=== PATIENT | female | born 1985 | race Caucasian/White ===

== ENCOUNTER 2023-07-07 10:15 | Outpatient (OUT) | payer OTHER, SELFPAY ==
--- NOTE | 2023-07-07 10:26 | US_ITS ---
[address] [address] Patient Name: VENUS ENG MRN: [facility]:[id number] date: 1985 Sex: F Assigned Patient Location: [facility] Current Patient Location: [facility] Accession/Order Number: [id number] Exam Date: 07/07/2023 10:30 Report Date: 07/07/2023 11:27 At the request of: PATIENCE DEAN Procedure: US OB growth EXAM: US OB BPP w non-stress, US OB growth; [id number], [id number] HISTORY: Advanced maternal age. COMPARISON: None. FINDINGS: A single intrauterine is identified. Presentation is breech. BPD 8.98 cm = 36 weeks 3 days, 33.2 percentile HC 33.10 cm = 39 weeks 2 days, 66.2 percentile AC 33.52 cm = 37 weeks 3 days, 58.6 percentile FL 6.78 cm = 34 weeks 6 days, less than 3 percentile Composite gestational age is 37 weeks 0 days (+/- 2 weeks 4 days), concordant with provided gestational age of 37 weeks 5 days. Estimated weight is 3055 +/- 458.19 g. CI = 74.18 (70.0-86.0) HC/AC = 1.02 (0.92 - 1.05) EFW Percentile: 38.0% Normal movements were seen during real-time exam. heart rate measures 166 bpm. Amniotic fluid index (ALMAZ) measures 12.2 cm. Placenta is posterior. breathing movements, gross body movements, tone, and qualitative amniotic fluid volume are all within normal limits resulting in a biophysical profile score of 8. US/US OB growth IMPRESSION: 1. Single living intrauterine . 2. Estimated gestational age is 37 w 0 d based on this exam. 3. Estimated weight of 3055 g, 38.0 percentile. Femur length in the less than 3 percentile. 4. Normal amniotic fluid index. 5. Normal biophysical profile score of 8. Electronically authenticated by: THOR SAWYER Date: 07/07/2023 11:27
--- NOTE | 2023-07-07 10:28 | US_ITS ---
The [address] [address] Patient Name: VENUS ENG MRN: [facility]:[id number] date: 1985 Sex: F Assigned Patient Location: [facility] Current Patient Location: [facility] Accession/Order Number: [id number] Exam Date: 07/07/2023 10:30 Report Date: 07/07/2023 11:27 At the request of: PATIENCE DEAN Procedure: US OB BPP w non-stress EXAM: US OB BPP w non-stress, US OB growth; [id number], [id number] HISTORY: Advanced maternal age. COMPARISON: None. FINDINGS: A single intrauterine is identified. Presentation is breech. BPD 8.98 cm = 36 weeks 3 days, 33.2 percentile HC 33.10 cm = 39 weeks 2 days, 66.2 percentile AC 33.52 cm = 37 weeks 3 days, 58.6 percentile FL 6.78 cm = 34 weeks 6 days, less than 3 percentile Composite gestational age is 37 weeks 0 days (+/- 2 weeks 4 days), concordant with provided gestational age of 37 weeks 5 days. Estimated weight is 3055 +/- 458.19 g. CI = 74.18 (70.0-86.0) HC/AC = 1.02 (0.92 - 1.05) EFW Percentile: 38.0% Normal movements were seen during real-time exam. heart rate measures 166 bpm. Amniotic fluid index (ALMAZ) measures 12.2 cm. Placenta is posterior. breathing movements, gross body movements, tone, and qualitative amniotic fluid volume are all within normal limits resulting in a biophysical profile score of 8. US/US OB BPP w non-stress IMPRESSION: 1. Single living intrauterine . 2. Estimated gestational age is 37 w 0 d based on this exam. 3. Estimated weight of 3055 g, 38.0 percentile. Femur length in the less than 3 percentile. 4. Normal amniotic fluid index. 5. Normal biophysical profile score of 8. Electronically authenticated by: THOR SAWYER Date: 07/07/2023 11:27
== END 2023-07-07 12:50 | disposition home or self-care (01) ==
LOC: FBCO 10:15 → FBC 10:16
PROVIDERS: Visit Provider Obstetrics & Gynecology
DX: O09.523 Supervision of elderly multigravida, third trimester (principal); Z3A.37 37 weeks gestation of pregnancy; O32.1XX0 Maternal care for breech presentation, not applicable or unspecified
CPT/HCPCS: 76816; 76818; 87081; 87150

== ENCOUNTER 2023-07-07 19:47 | Outpatient (REF) | payer OTHER, SELFPAY | END 2023-07-07 19:48 | disposition home or self-care (01) | LOC: LAB 19:47 | PROVIDERS: Visit Provider Obstetrics & Gynecology | DX: Z34.93 Encounter for supervision of normal pregnancy, unspecified, third trimester (principal) | CPT/HCPCS: 87081; 87150 ==

== ENCOUNTER 2023-07-10 07:56 | Observation (INO) | payer OTHER, SELFPAY ==
[2023-07-10 08:23] VITALS: BP 103/70; PULSE 93
--- NOTE | 2023-07-10 08:40 | PC.NURSE ---
Dr. Hunt at bedside to explain procedure and discuss risks. Pt. asks many questions and verbalizes anxieties. Dr. Hunt explains everything and comforts her. US used to confirm fetus remains in breech position. Gentle pressure applied towards top of uterus where head is and pt. says Okay, NO, NO! Dr. Hunt discussed plan of care with pt. and outpatient testing needed, as well as tentative C/S next Thurs. if breech position remains. Pt. verbalizes understanding and is staying to complete NST at this time.
--- NOTE | 2023-07-10 10:36 | US_ITS ---
[address] [address] Patient Name: VENUS ENG MRN: [facility]:[id number] date: 1985 Sex: F Assigned Patient Location: [facility] Current Patient Location: [facility] Accession/Order Number: [id number] Exam Date: 07/10/2023 10:50 Report Date: 07/10/2023 11:59 At the request of: PATIENCE DEAN Procedure: US OB BPP w non-stress EXAMINATION: US OB BPP w non-stress HISTORY: NON REACTIVE NST COMPARISON: Ultrasound OB biophysical 07/07/2023 TECHNIQUE: Ultrasound biophysical profile was performed in the radiology department. BREATHING MOVEMENTS: 2.0 GROSS BODY MOVEMENTS: 0.0 TONE: 2.0 QUALITATIVE AMNIOTIC FLUID VOLUME: 2.0 PRESENTATION: BREECH HEART RATE: 149.2 bpm bpm. AMNIOTIC FLUID VOLUME: 17.9 cm GESTATIONAL AGE: 38 weeks 1 days CONCLUSION: Total biophysical profile score 6.0. Electronically authenticated by: JENNIFER LOBATO Date: 07/10/2023 11:59
[2023-07-10 11:47] VITALS: BP 116/65; PULSE 85
[2023-07-10] MEDS: 0.9 % SODIUM CHLORIDE 1,000 ML 1000 ML IV (12:31)
--- NOTE | 2023-07-18 14:37 | PM.OBPN ---
OB - PN: Subj Subjective Interval history: desires external cephalic version for breech presentation Patient comments: no complaints Exam Constitutional Vital Signs, click to edit/add: Last Vital Signs Pulse 85 07/10/23 11:47 BP 116/65 07/10/23 11:47 Documenting provider has reviewed patient's vital signs: yes Respiratory Common normals: clear to auscultation bilaterally Cardio Common normals: regular rate and regular rhythm GI Common normals: Normal to inspection, nondistended, normoactive bowel sounds present Extremity Common normals: no clubbing, cyanosis or edema and no calf tenderness OB - PN: A/P Assessment and Plan (1) Breech position of fetus: Plan breech presentation-pt states no longer desires ecv, pt sent home and scheduled to return for c/s Time Spent with Patient Time: Total time spent is greater than 50% in coordination of care (as documented) at patient's floor/unit and/or counseling patient: Total time spent with greater than 50% in coordination of care (as documented) at patient's floor/unit and/or counseling patient: 25 - 35 minutes
== END 2023-07-10 13:17 | disposition home or self-care (01) ==
LOC: FBC 07:58
PROVIDERS: Admitting Provider Obstetrics & Gynecology; Visit Provider Obstetrics & Gynecology
DX: O26.843 Uterine size-date discrepancy, third trimester (principal); Z3A.38 38 weeks gestation of pregnancy; Z79.891 Long term (current) use of opiate analgesic
CPT/HCPCS: 59025; 76818; G0378; G0379

== ENCOUNTER 2023-07-14 13:35 | Inpatient (IN) | payer OTHER, SELFPAY ==
[2023-07-14] VITALS (29 sets, daily range): BP systolic 89–127; BP diastolic 44–77; PULSE 69–98; RESP 8–34; TEMP 36.1–36.8; O2SAT 96–100
--- NOTE | 2023-07-14 12:37 | US_ITS ---
[address] [address] Patient Name: VENUS ENG MRN: [id number] date: 1985 Sex: F Assigned Patient Location: [facility] Current Patient Location: [facility] Accession/Order Number: [id number] Exam Date: 07/14/2023 12:38 Report Date: 07/15/2023 07:05 At the request of: PATIENCE DEAN Procedure: US OB BPP w non-stress EXAMINATION: US OB BPP w non-stress HISTORY: SUBUTEX MAINTENANCE COMPARISON: No relevant comparison available. TECHNIQUE: Ultrasound biophysical profile was performed in the radiology department. FINDINGS: BREATHING MOVEMENTS: 2.0 GROSS BODY MOVEMENTS: 0.0 TONE: 2.0 QUALITATIVE AMNIOTIC FLUID VOLUME: 2.0 PRESENTATION: TRANSVERSE HEART RATE: 157.0 bpm H.B./min AMNIOTIC FLUID VOLUME: 10.4 cm cm GESTATIONAL AGE: 38 weeks 5 days CONCLUSION: Total biophysical profile score: 6.0 Electronically authenticated by: МАРИНА HSU Date: 07/15/2023 07:05
[2023-07-14 14:28] LABS: Basophils Percent Auto 0.5 % (0.2-2.0); Eosinophils Absolute Auto 0.2 10^3/uL (0.0-0.7); Eosinophils Percent Auto 2.4 % (0.9-7.0); Hematocrit 27.4 % (36.0-48.0); Hemoglobin 8.7 g/dL (12.0-16.0); Immature Granulocytes Abs Auto 0.04 10^3/uL (0.00-0.03); Immature Granulocytes Pct Auto 0.5 % (0.0-0.5); Lymphocytes Absolute Auto 1.8 10^3/uL (1.2-3.8); Lymphocytes Percent Auto 23.1 % (20.5-60.0); Mean Corpuscular HGB Conc 31.8 g/dL (29.9-35.2); Mean Corpuscular Hemoglobin 24.9 pg (26.7-34.0); Mean Corpuscular Volume 78.3 fL (81.0-99.0); Mean Platelet Volume 9.1 fL (9.5-13.5); Monocytes Absolute Auto 0.6 10^3/uL (0.3-0.8); Monocytes Percent Auto 8.4 % (1.7-12.0); Neutrophils Absolute Auto 4.9 10^3/uL (1.4-6.5); Neutrophils Percent Auto 65.1 % (43.0-75.0); Platelet Count 399 10^3/uL (150-450); Red Cell Distribution Width 14.2 % (11.0-15.0); White Blood Count 7.6 10^3/uL (4.0-11.0)
[2023-07-14 14:41] LABS: Amphetamine Screen Urine NEGATIVE (NEGATIVE); Barbiturates Screen Urine NEGATIVE (NEGATIVE); Benzodiazepines Screen Urine NEGATIVE (NEGATIVE); Buprenorphine Screen Urine POSITIVE (NEGATIVE); Cannabinoid Screen Urine POSITIVE (NEGATIVE); Cocaine Screen Urine NEGATIVE (NEGATIVE); Methadone Screen Urine NEGATIVE (NEGATIVE); Methamphetamines Screen Urine NEGATIVE (NEGATIVE); Opiate Screen Urine NEGATIVE (NEGATIVE); Oxycodone Screen Urine NEGATIVE (NEGATIVE); Phencyclidine Screen Urine NEGATIVE (NEGATIVE); Tricyclic Antidepressant Urine NEGATIVE (NEGATIVE)
--- NOTE | 2023-07-14 14:45 | PM.OBHP ---
OB - H&P: HPI History of Present Illness Chief complaint: Z34.98, O99.320, F11.20 - US BPP/NST : 6 Para: 4 Date of last menstrual period: 09/20/22 Gestational age based on last menstrual period: 38 5/7wks Comments: breech presentation, ho subutex use, fht reassuring but non reactive, bpp 04/17, discussed with patient, will perform section History of Present Dating criteria: LMP confirmed by 1st trimester US care: good care Ultrasounds: normal 1st trimester US Labs Blood type: O (+) positive Rubella: immune RPR/VDLR: nonreactive GBS status: unknown HBsAG: negative Review of Systems ROS Status of ROS 10 or more systems reviewed and unremarkable except as noted in history and below Meds Home Medications and Allergies Allergies Allergy/AdvReac Type Severity Reaction Status Date / Time No Known Drug Allergies Allergy Verified 07/10/23 08:21 Exam Constitutional Vital Signs, click to edit/add: Last Vital Signs Pulse 98 H 07/14/23 14:26 BP 127/68 07/14/23 14:26 Documenting provider has reviewed patient's vital signs: yes Common normals: no apparent distress Respiratory Common normals: clear to auscultation bilaterally Cardio Common normals: regular rate and regular rhythm GI Common normals: Normal to inspection, nondistended, normoactive bowel sounds present Extremity Common normals: no clubbing, cyanosis or edema and no calf tenderness Results Labs Labs: Short CBC 07/14/23 Range/Units 14:15 WBC 7.6 (4.0-11.0) 10^3/uL Hgb 8.7 L (12.0-16.0) g/dL Hct 27.4 L (36.0-48.0) % Plt Count 399 (150-450) 10^3/uL OB - A/P Assessment and Plan (1) Substance abuse affecting , antepartum: Plan iup at 38 5/7wks, substance abuse, non reactive nst, breech presentation-consent obtained, mmc reviewed, procedure reviewed, all questions answered
[2023-07-14] MEDS: 0.9 % SODIUM CHLORIDE 1,000 ML 125 ML IV (14:52)
[2023-07-14] MEDS: CEFAZOLIN SODIUM/DEXTROSE,ISO 2 GM/50 ML PIGGYBACK IV ×2 (14:52→22:05)
[2023-07-14] MEDS: LACTATED RINGER'S SOLUTION 1,000 ML 125 ML IV (15:35)
--- NOTE | 2023-07-14 15:50 | P.ON_ITS ---
Brief Operative Note Date of procedure: 07/14/23 Pre-op diagnosis: iup at 38 5/7wks, breech presentation, ho substance abuse Post-op diagnosis: same as pre-op Procedure: NAME OF PROCEDURE: [ section ] PROCEDURE: Patient was taken back to the Operating Room where she was given a spinal anesthesia with Duramorph without difficulty. She was prepped and draped in the normal sterile fashion. A Pfannenstiel skin incision was then made 2 cm above the symphysis pubis and carried down to underlying rectus fascia using a Bovie. The fascia was incised in the midline and extended laterally using Vee scissors. Two Sin clamps were placed on the superior aspect of the fascia and dissected off the underlying rectus muscles. The same was performed on the inferior aspect as well. The muscles were then in the midline. P eritoneum was identified and entered bluntly. The peritoneum was then extended superiorly and inferiorly with good visualization of the bladder. The bladder blade was inserted. A low transverse incision was made on the patient's uterus and extended laterally digitally. The infant was then delivered atraumatically after the bladder blade was removed in the cephalic position. The cord was clamped and cut. Cord blood was obtained. The infant was handed off to awaiting team. The patient's placenta was spontaneously delivered. The uterus was then exteriorized. The uterus was cleared of all clots and debris. The bladder blade was reinserted. The patient's uterine incision was closed using #0 Vicryl in a running lock fashion. Excellent hemostasis was assured. The uterus was then returned to the patient's abdomen. The patient's abdomen was copiously irrigated using warm saline. Peritoneal gutters were cleared of all clots and debris. Again excellent hemostasis was assured. The patient's peritoneum was closed using 3-0 Vicryl in a running fashion. The patient's fascia was closed using #0 Vicryl in a running fashion. The patient's skin was closed using 4-0 Vicryl subcuticularly. The patient tolerated the procedure well. Sponge, lap, and needle counts were correct x2. The patient was taken to the Recovery Room in stable condition. Anesthesia: spinal Surgeon: Alberto Hunt Risk Modeler: Gale Lopez Estimated blood loss (mL): 575 Pathology: other (placenta) Condition: stable Disposition: floor
--- NOTE | 2023-07-14 15:51 | P.OBPRC_ITS ---
Procedure Pre-op/Post-op diagnoses: Pre-Op/Post-Op Diagnoses Operation Date: 07/14/23 14:45 <No data on this case meets the specified criteria> Procedure: Procedures Operation Date: 07/14/23 14:45 Actual Procedure Side Surgeon p WITH OF VIABLE BABY BOY Not Applicable Alberto Hunt DO Applications Engineering Manager: Gale Lopez Estimated blood loss (mL): 575 Disposition: floor Anesthesia type: Spinal
[2023-07-14] MEDS: OXYTOCIN/0.9 % SODIUM CHLORIDE 20 UNITS/1,000 ML PLAST..BAG 200 UNIT IV (16:15)
[2023-07-14] MEDS: KETOROLAC TROMETHAMINE 30 MG/ML VIAL IVP ×2 (16:40→22:35)
[2023-07-14] MEDS: BUPRENORPHINE HCL 2 MG TAB SUBL 8 MG PO (18:18)
--- NOTE | 2023-07-14 18:28 | PC.NURSE ---
pt c/o abdominal cramping/ incision pain 04/19. Much reassurance given. subutext given as ordered PO. position change. assisted with.
[2023-07-15] VITALS (11 sets, daily range): BP systolic 100–124; BP diastolic 61–77; PULSE 74–93; RESP 16–18; TEMP 36.6–36.8; O2SAT 98
[2023-07-15] MEDS: KETOROLAC TROMETHAMINE 30 MG/ML VIAL IVP ×4 (04:20→21:31)
[2023-07-15] MEDS: ENOXAPARIN SODIUM 40 MG/0.4 ML SYRINGE SUBQ (04:24)
[2023-07-15 05:44] LABS: Basophils Absolute Auto 0.1 10^3/uL (0.0-0.1); Basophils Percent Auto 0.6 % (0.2-2.0); Eosinophils Absolute Auto 0.2 10^3/uL (0.0-0.7); Eosinophils Percent Auto 2.2 % (0.9-7.0); Hematocrit 26.6 % (36.0-48.0); Hemoglobin 8.1 g/dL (12.0-16.0); Immature Granulocytes Abs Auto 0.06 10^3/uL (0.00-0.03); Immature Granulocytes Pct Auto 0.6 % (0.0-0.5); Lymphocytes Absolute Auto 2.1 10^3/uL (1.2-3.8); Lymphocytes Percent Auto 19.2 % (20.5-60.0); Mean Corpuscular HGB Conc 30.5 g/dL (29.9-35.2); Mean Corpuscular Hemoglobin 24.8 pg (26.7-34.0); Mean Corpuscular Volume 81.6 fL (81.0-99.0); Mean Platelet Volume 9.1 fL (9.5-13.5); Monocytes Absolute Auto 0.8 10^3/uL (0.3-0.8); Monocytes Percent Auto 7.5 % (1.7-12.0); Neutrophils Absolute Auto 7.5 10^3/uL (1.4-6.5); Neutrophils Percent Auto 69.9 % (43.0-75.0); Platelet Count 367 10^3/uL (150-450); Red Blood Count 3.26 10^6/uL (4.20-5.40); Red Cell Distribution Width 14.2 % (11.0-15.0); White Blood Count 10.8 10^3/uL (4.0-11.0)
--- NOTE | 2023-07-15 07:15 | W.PC.ACHO ---
Registration Status: ADM IN Primary Language: Preferred Language: Thai Report given at 0705. Active Medications Generic Name Dose Route Start Last Admin Trade Name Freq PRN Reason Stop Dose Admin Al Hydroxide/Mg Hydroxide 2,400 mg 07/14/23 15:52 Magnesium Hydroxide 2,400 Mg/10 Ml Oral.Susp PO Q6H PRN Dyspepsia Buprenorphine HCl 8 mg 07/15/23 09:00 Buprenorphine Hcl 2 Mg Tab Subl PO QD JACINTO Diphenhydramine HCl 25 mg 07/14/23 15:52 Diphenhydramine Hcl 50 Mg/Ml (1ml) Vial IV 07/15/23 15:54 Q6H PRN Itching Docusate Sodium 100 mg 07/15/23 09:00 Docusate Sodium 100 Mg Capsule PO BID JACINTO Enoxaparin Sodium 40 mg 07/15/23 04:00 07/15/23 04:24 Enoxaparin Sodium 40 Mg/0.4 Ml Syringe SUBQ 40 mg Q24H JACINTO Administration Sodium Chloride 1,000 mls @ 125 mls/hr 07/14/23 14:15 07/14/23 17:03 Sodium Chloride 0.9% 1,000 Ml IV Infused .Q8H JACINTO Infusion Lactated Ringer's 1,000 mls @ 125 mls/hr 07/14/23 16:00 Lactated Ringers IV .Q8H JACINTO Ibuprofen 800 mg 07/14/23 15:52 Ibuprofen 400 Mg Tablet PO Q8H PRN Pain Ketorolac Tromethamine 30 mg 07/14/23 15:52 07/15/23 04:20 Ketorolac Tromethamine 30 Mg/Ml Vial IVP 07/16/23 15:53 30 mg Q6H PRN Administration Pain Ondansetron HCl 4 mg 07/14/23 15:52 Ondansetron Pf 4 Mg/2 Ml Vial IV Q6H PRN Nausea And Vomiting Ondansetron HCl 4 mg 07/14/23 15:52 Ondansetron 4 Mg Rapdis Tablet PO Q6H PRN Nausea And Vomiting Oxycodone/Acetaminophen 1 tab 07/14/23 15:52 Oxycodone Hcl/Acetaminophen 1 Tab Tablet PO Q4H PRN Pain Scale 4-6 Oxycodone/Acetaminophen 2 tab 07/14/23 15:52 Oxycodone Hcl/Acetaminophen 1 Tab Tablet PO Q4H PRN Pain Scale 7-10 Senna 17.2 mg 07/14/23 20:00 Sennosides 8.6 Mg Tablet PO QHS PRN Constipation Simethicone 80 mg 07/14/23 15:52 Simethicone 80 Mg Tab.Chew PO QID PRN Abdominal Distention Diet Category Date Time Status Regular Consistency Diet Diet 07/14/23 Dinner Active Neurology [place] coma scale total score 15 Respiratory Lung sounds [Bilateral clear Throughout] Lung sounds [Bilateral clear Throughout] Lung sounds [Bilateral clear Throughout] Lung sounds [Bilateral clear Throughout] Lung sounds [Bilateral clear Throughout] Lung sounds [Bilateral clear Throughout] Pulse Oximetry 98 Pulse Oximetry 97 Pulse Oximetry 98 Pulse Oximetry 97 Pulse Oximetry 96 Pulse Oximetry 97 Pulse Oximetry 100 Pulse Oximetry 100 Pulse Oximetry 100 Pulse Oximetry 100 Pulse Oximetry 100 Pulse Oximetry 100 Pulse Oximetry 99 Pulse Oximetry 99 Pulse Oximetry 99 Pulse Oximetry 99 Pulse Oximetry 99 Pulse Oximetry 99 Oxygen Delivery Method Room Air Oxygen Delivery Method Room Air Oxygen Delivery Method Room Air Oxygen Delivery Method Room Air Oxygen Delivery Method Room Air Oxygen Delivery Method Room Air Oxygen Delivery Method Room Air Oxygen Delivery Method Room Air
[2023-07-15] MEDS: ACETAMINOPHEN 500 MG TABLET 1000 MG PO ×2 (08:02→14:44)
[2023-07-15] MEDS: DOCUSATE SODIUM 100 MG CAPSULE PO ×2 (08:03→21:31)
[2023-07-15] MEDS: BUPRENORPHINE HCL 2 MG TAB SUBL 8 MG PO (08:03)
--- NOTE | 2023-07-15 08:49 | P.OBPN_ITS ---
OB - PN: Subj Subjective Patient comments: no complaints [place] infant status: doing well Exam Constitutional Vital Signs, click to edit/add: Last Vital Signs Temp 98.3 F 07/15/23 08:00 Pulse 77 07/15/23 08:08 Resp 18 07/15/23 08:00 BP 100/61 07/15/23 08:08 Pulse Ox 98 07/15/23 05:28 O2 Del Method Room Air 07/15/23 05:30 Documenting provider has reviewed patient's vital signs: yes Common normals: no apparent distress Respiratory Common normals: normal respiratory effort and clear to auscultation bilaterally Cardio Common normals: regular rate and regular rhythm GI Common normals: Normal to inspection, nondistended, normoactive bowel sounds present Extremity Common normals: no clubbing, cyanosis or edema and no calf tenderness Results Labs Labs: Short CBC 07/14/23 07/15/23 Range/Units 14:15 05:34 WBC 7.6 10.8 (4.0-11.0) 10^3/uL Hgb 8.7 L 8.1 L (12.0-16.0) g/dL Hct 27.4 L 26.6 L (36.0-48.0) % Plt Count 399 367 (150-450) 10^3/uL OB - PN: A/P Assessment and Plan (1) Substance abuse affecting , antepartum: Plan - day: 1 Plan: routine postop care Time Spent with Patient Time: Total time spent is greater than 50% in coordination of care (as documented) at patient's floor/unit and/or counseling patient: Total time spent with greater than 50% in coordination of care (as documented) at patient's floor/unit and/or counseling patient: less than 15 minutes
--- NOTE | 2023-07-15 11:36 | RESP.RT ---
Done per nursing
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
[2023-07-16] MEDS: ACETAMINOPHEN 500 MG TABLET 1000 MG PO ×3 (00:43→20:04)
[2023-07-16] MEDS: SIMETHICONE 80 MG TAB.CHEW PO ×2 (00:44→21:11)
[2023-07-16] MEDS: KETOROLAC TROMETHAMINE 30 MG/ML VIAL IVP ×2 (03:41→10:28)
[2023-07-16] MEDS: ENOXAPARIN SODIUM 40 MG/0.4 ML SYRINGE SUBQ (04:33)
[2023-07-16 07:41] VITALS: BP 101/56; PULSE 69
--- NOTE | 2023-07-16 07:48 | PM.OBPN ---
OB - PN: Subj Subjective Patient comments: no complaints and pain well controlled [place] status: doing well Exam Constitutional Vital Signs, click to edit/add: Last Vital Signs Temp 97.9 F 07/15/23 21:55 Pulse 69 07/16/23 07:41 Resp 16 07/15/23 21:55 BP 101/56 07/16/23 07:41 Pulse Ox 98 07/15/23 21:55 O2 Del Method Room Air 07/15/23 21:55 Documenting provider has reviewed patient's vital signs: yes Common normals: no apparent distress Respiratory Common normals: normal respiratory effort and clear to auscultation bilaterally Cardio Common normals: regular rate and regular rhythm GI Common normals: Normal to inspection, nondistended, normoactive bowel sounds present Extremity Common normals: no clubbing, cyanosis or edema and no calf tenderness OB - PN: A/P Assessment and Plan (1) Substance abuse affecting , antepartum: Plan - day: 2 Plan: routine postop care Time Spent with Patient Time: Total time spent is greater than 50% in coordination of care (as documented) at patient's floor/unit and/or counseling patient: Total time spent with greater than 50% in coordination of care (as documented) at patient's floor/unit and/or counseling patient: less than 15 minutes
[2023-07-16] MEDS: DOCUSATE SODIUM 100 MG CAPSULE PO (07:49)
[2023-07-16] MEDS: BUPRENORPHINE HCL 2 MG TAB SUBL 8 MG PO (07:49)
--- NOTE | 2023-07-16 09:15 | PC.NURSE ---
assessed as charted. plan of care reviewed of self and baby. verbalizes understanding.
[2023-07-16 11:08] VITALS: O2SAT 98
[2023-07-16] MEDS: IBUPROFEN 400 MG TABLET 800 MG PO (16:29)
[2023-07-16 16:32] VITALS: BP 117/58; PULSE 88
--- NOTE | 2023-07-16 19:45 | W.PC.ACHO ---
Registration Status: ADM IN Primary Language: Preferred Language: Belarusian Active Medications Generic Name Dose Route Start Last Admin Trade Name Freq PRN Reason Stop Dose Admin Acetaminophen 1,000 mg 07/15/23 07:33 07/16/23 07:48 Acetaminophen 500 Mg Tablet PO 1,000 mg Q6H PRN Administration Pain Al Hydroxide/Mg Hydroxide 2,400 mg 07/14/23 15:52 Magnesium Hydroxide 2,400 Mg/10 Ml Oral.Susp PO Q6H PRN Dyspepsia Buprenorphine HCl 8 mg 07/15/23 09:00 07/16/23 07:49 Buprenorphine Hcl 2 Mg Tab Subl PO 8 mg QD JACINTO Administration Docusate Sodium 100 mg 07/15/23 09:00 07/16/23 07:49 Docusate Sodium 100 Mg Capsule PO 100 mg BID JACINTO Administration Enoxaparin Sodium 40 mg 07/15/23 04:00 07/16/23 04:33 Enoxaparin Sodium 40 Mg/0.4 Ml Syringe SUBQ 40 mg Q24H JACINTO Administration Sodium Chloride 1,000 mls @ 125 mls/hr 07/14/23 14:15 07/14/23 17:03 Sodium Chloride 0.9% 1,000 Ml IV Infused .Q8H JACINTO Infusion Lactated Ringer's 1,000 mls @ 125 mls/hr 07/14/23 16:00 07/14/23 15:35 Lactated Ringers IV 125 mls/hr .Q8H JACINTO Administration Lactated Ringer's 1,000 mls @ 50 mls/hr 07/16/23 14:30 Lactated Ringers IV .Q20H JACINTO Ibuprofen 800 mg 07/14/23 15:52 07/16/23 16:29 Ibuprofen 400 Mg Tablet PO 800 mg Q8H PRN Administration Pain Ondansetron HCl 4 mg 07/14/23 15:52 Ondansetron Pf 4 Mg/2 Ml Vial IV Q6H PRN Nausea And Vomiting Ondansetron HCl 4 mg 07/14/23 15:52 Ondansetron 4 Mg Rapdis Tablet PO Q6H PRN Nausea And Vomiting Oxycodone/Acetaminophen 1 tab 07/14/23 15:52 Oxycodone Hcl/Acetaminophen 1 Tab Tablet PO Q4H PRN Pain Scale 4-6 Oxycodone/Acetaminophen 2 tab 07/14/23 15:52 Oxycodone Hcl/Acetaminophen 1 Tab Tablet PO Q4H PRN Pain Scale 7-10 Senna 17.2 mg 07/14/23 20:00 Sennosides 8.6 Mg Tablet PO QHS PRN Constipation Simethicone 80 mg 07/14/23 15:52 07/16/23 00:44 Simethicone 80 Mg Tab.Chew PO 80 mg QID PRN Administration Abdominal Distention Respiratory Pulse Oximetry 98 Pulse Oximetry 98 Pulse Oximetry 98 Oxygen Delivery Method Room Air Oxygen Delivery Method Room Air Oxygen Delivery Method Room Air
[2023-07-16 22:01] VITALS: O2SAT 98
[2023-07-17 00:30] VITALS: RESP 16; TEMP 36.4
[2023-07-17 00:36] VITALS: BP 126/66; PULSE 95
[2023-07-17] MEDS: IBUPROFEN 400 MG TABLET 800 MG PO ×2 (00:37→08:33)
[2023-07-17] MEDS: ENOXAPARIN SODIUM 40 MG/0.4 ML SYRINGE SUBQ (04:52)
[2023-07-17] MEDS: ACETAMINOPHEN 500 MG TABLET 1000 MG PO ×2 (04:52→11:15)
--- NOTE | 2023-07-17 07:50 | P.OBPN_ITS ---
OB - PN: Subj Subjective Patient comments: no complaints [place] status: doing well Exam Constitutional Vital Signs, click to edit/add: Last Vital Signs Temp 97.6 F 07/17/23 00:30 Pulse 95 H 07/17/23 00:36 Resp 16 07/17/23 00:30 BP 126/66 07/17/23 00:36 Pulse Ox 98 07/16/23 22:01 O2 Del Method Room Air 07/17/23 00:30 Documenting provider has reviewed patient's vital signs: yes Common normals: no apparent distress and oriented x3 General appearance: cooperative Orientation/consciousness: Yes oriented to person, Yes oriented to place and Yes oriented to time HENMT Common normals: normocephalic Eye General eye: normal appearance of both eyes Lymph Lymphatic: no lymphadenopathy noted Respiratory Common normals: normal respiratory effort, no retractions and clear to auscultation bilaterally Cardio Common normals: regular rate, regular rhythm and no murmurs GI Common normals: Normal to inspection, nondistended, normoactive bowel sounds present Common normals: no CVA tenderness Back & Pelvis Common normals: no CVA tenderness Extremity Common normals: normal to inspection and full ROM Neuro Common normals: oriented x3 Psych Attitude: calm OB - PN: A/P Assessment and Plan (1) Substance abuse affecting , antepartum: Plan - day: 3 Plan: routine postop care Time Spent with Patient Time: Total time spent is greater than 50% in coordination of care (as documented) at patient's floor/unit and/or counseling patient: Total time spent with greater than 50% in coordination of care (as documented) at patient's floor/unit and/or counseling patient: less than 15 minutes
--- NOTE | 2023-07-17 08:02 | PM.OBDS ---
DS: Providers Provider Date of admission: 07/14/23 13:35 Admitting clinician: Alberto Hunt Attending physician on admission: Alberto Hunt Consults: 07/14/23 Consult to Chief Maintenance Supervisor Routine Reason for consult:: Drug Abuse Attending physician on discharge: MONICA RAMIREZ Discharging clinician: MONICA RAMIREZ Anticipated date of discharge: 07/17/23 DS: Diagnosis Discharge Diagnosis (1) Substance abuse affecting , antepartum: Plan Primary Low transverse section for breech presentation OB - DS: Summary Peripartum Data - Procedures: Procedures Operation Date: 07/14/23 14:45 Actual Procedure Side Surgeon p WITH OF VIABLE BABY BOY Not Applicable Alberto Hunt DO Peripartum Data - Vaginal Delivery Procedures: Procedures Operation Date: 07/14/23 14:45 Actual Procedure Side Surgeon p WITH OF VIABLE BABY BOY Not Applicable Alberto Hunt DO Infant Delivery method: section Gender: male Discharge plan: home Time Spent with Patient Time attestation: Total time spent providing and/or coordinating discharge services: Time spent: less than 30 minutes Exam Constitutional Vital Signs, click to edit/add: Last Vital Signs Temp 97.6 F 07/17/23 00:30 Pulse 95 H 07/17/23 00:36 Resp 16 07/17/23 00:30 BP 126/66 07/17/23 00:36 Pulse Ox 98 07/16/23 22:01 O2 Del Method Room Air 07/17/23 00:30 Documenting provider has reviewed patient's vital signs: yes Common normals: no apparent distress General appearance: cooperative Orientation/consciousness: Yes awake, Yes oriented to person, Yes oriented to place and Yes oriented to time Neck & C-Spine Common normals: full ROM Lymph Lymphatic: no lymphadenopathy noted Respiratory Common normals: normal respiratory effort and clear to auscultation bilaterally Cardio Common normals: regular rate and regular rhythm GI Common normals: Normal to inspection, nondistended, normoactive bowel sounds present and non-tender Common normals: no CVA tenderness Back & Pelvis Common normals: no CVA tenderness Extremity Common normals: normal to inspection and full ROM Neuro Common normals: oriented x3 Sensorium/orientation: awake, alert, oriented to place and oriented to time Discharge Plan Discharge Disposition: Home, Self-Care Condition: Good Discharge Medications: New ibuprofen 400 mg Tablet 800 mg PO Q8H PRN (Reason: Pain) 30 Days Qty: 60 1RF docusate sodium 100 mg Capsule 100 mg PO BID 14 Days Qty: 28 2RF Discontinued buprenorphine HCl 8 mg tablet, sublingual 8 mg sublingual DAILY Forms: Portal Instructions
[2023-07-17 08:26] VITALS: BP 107/55; PULSE 76
[2023-07-17] MEDS: BUPRENORPHINE HCL 2 MG TAB SUBL 8 MG PO (08:33)
[2023-07-17] MEDS: DOCUSATE SODIUM 100 MG CAPSULE PO (08:33)
[2023-07-17 08:50] VITALS: BP 105/55; PULSE 76; RESP 16; TEMP 37.1
[2023-07-19 13:07] LABS: Buprenorphine Positive (.); Buprenorphine Conf, MS, UR 48 ng/mL (Cutoff=10); Norbuprenorphine Positive (.); Norbuprenorphine Conf, MS,UR 609 ng/mL (Cutoff=10)
[2023-07-24 08:12] LABS: Cannabinoid Positive (.); Carboxy THC Conf, MS, UR 12 ng/mL (Cutoff=10)
== END 2023-07-17 11:22 | disposition home or self-care (01) | DRG 540 ==
LOC: FBCO 13:41 → FBC 13:41
PROVIDERS: Admitting Provider Obstetrics & Gynecology; Visit Provider Obstetrics & Gynecology
PROC: 10D00Z1 Extraction of Products of Conception, Low, Open Approach (ICD-10-PCS; CPT 59514; principal; 2023-07-14 14:45)
DX: O36.5930 Maternal care for other known or suspected poor fetal growth, third trimester, not applicable or unspecified (principal); O32.1XX0 Maternal care for breech presentation, not applicable or unspecified; O99.324 Drug use complicating childbirth; F11.10 Opioid abuse, uncomplicated; Z3A.38 38 weeks gestation of pregnancy; Z37.0 Single live birth
CPT/HCPCS: 36415; 76818; 80307; 80348; 80349; 85025; 86850; 86900; 86901; 88307; 94667; 94668; 94761; 96372; 96374; 96376